=== PATIENT | male | born 1945 | race Caucasian/White ===

== ENCOUNTER 2024-10-12 06:25 | Day surgery (SDC) | payer OTHER, MEDICARE ==
[2024-10-11 12:29] VITALS: BMI 31.4
[2024-10-12 11:16] VITALS: TEMP 98
[2024-10-12 11:53] VITALS: BP 124/71; PULSE 78; RESP 18
== END 2024-10-12 12:00 | disposition home or self-care (01) ==
LOC: JASU-ENDO 06:25
PROVIDERS: ATTEND Internal Medicine Gastroenterology
PROC: 0DBL8ZX Excision of Transverse Colon, Via Natural or Artificial Opening Endoscopic, Diagnostic (ICD-10-PCS; principal; 2024-10-12 10:00)
DX: Z12.11 Encounter for screening for malignant neoplasm of colon (principal); D12.3 Benign neoplasm of transverse colon; K57.30 Diverticulosis of large intestine without perforation or abscess without bleeding
CPT/HCPCS: 88305-TC